=== PATIENT | female | born 1960 | race Caucasian/White ===

== ENCOUNTER 2016-08-21 11:32 | Emergency (ER) | payer MEDICARE, OTHER ==
[2016-08-21 10:45] LABS: URINE SOURCE CLEAN CATCH
[2016-08-21 10:53] LABS: BASOPHIL# 0.1 X10e3 (0-0.3); BASOPHIL% 0.8 % (0-2.5); EOSINOPHIL# 0.1 X10e3 (0-0.7); EOSINOPHIL% 1.8 % (0.0-7.0); HEMOGLOBIN 14.1 gm/dL (12.0-16.0); LYMPHOCYTE# 2.3 X10e3 (1.0-3.5); LYMPHOCYTE% 27.6 % (17.0-45.0); MEAN CORPUSCULAR HEMOGLOBIN 30.6 PG (28-34); MEAN CORPUSCULAR HGB CONC 34.4 g/dL (30-36); MEAN PLATELET VOLUME 11.3 FL (6.5-11.5); MONOCYTE# 0.8 X10e3 (0-1.0); MONOCYTE% 9.5 % (3.0-12.0); NEUTROPHIL# 4.9 X10e3 (1.5-7.1); NEUTROPHIL% 60.3 % (40-75); PLATELET COUNT 193 X10e3 (140-420); RED BLOOD COUNT 4.61 X10e (3.90-5.30); RED CELL DISTRIBUTION WIDTH 14.1 % (11.0-15.5); WHITE BLOOD COUNT 8.2 X10e3 (4.0-10.5)
[2016-08-21 10:54] LABS: URINE APPEARANCE CLOUDY; URINE BILIRUBIN NEG (NEG); URINE BLOOD NEG (NEG); URINE COLOR YELLOW; URINE GLUCOSE 250 MG/DL (NEG); URINE KETONE NEG (NEG); URINE LEUKOCYTE ESTERASE 3+ (NEG); URINE NITRATE NEG (NEG); URINE PH 6.5 (5-8); URINE PROTEIN NEG (NEG); URINE SPECIFIC GRAVITY 1.015 (1.003-1.035)
[2016-08-21 10:56] LABS: DIFF IND NO
[2016-08-21 10:57] LABS: CULTURE INDICATED? YES; URINE BACTERIA AUWI 2+ (NEGATIVE); URINE SQUAMOUS EPITHELIAL CELL FEW /[HPF]
[2016-08-21 11:07] LABS: UWBCS1 AUWI 25-50 (0-5)
[2016-08-21 11:08] LABS: URINE MUCUS PRESENT
[2016-08-21 11:24] LABS: ALBUMIN SERUM 4.4 g/dL (3.5-5.0); ALKALINE PHOSPHATASE 90 U/L (32-92); ALT (SGPT) 29 U/L (10-40); AST (SGOT) 26 U/L (10-42); BILIRUBIN, DIRECT 0.1 mg/dL (0.0-0.2); BILIRUBIN,INDIRECT 0.9 mg/dL (0.0-0.9); BLOOD UREA NITROGEN 27 mg/dL (9-23); CALCIUM SERUM 9.4 mg/dL (8.4-10.2); CARBON DIOXIDE 28 mmol/L (22-31); CHLORIDE 95 mmol/L (100-111); CREATININE SERUM 0.9 mg/dL (0.6-1.4); GLOM FILT RATE Estimated ABOVE60 mL/min (>60); GLUCOSE FASTING 254 mg/dL (70-110); POTASSIUM 3.6 mmol/L (3.5-5.1); PROTEIN TOTAL SERUM 8.5 g/dL (6.0-8.3); SODIUM 133 mmol/L (135-145)
== END 2016-08-21 13:02 | disposition home or self-care (01) ==
LOC: CED 11:32
PROVIDERS: Emergency Medicine
DX: R73.9 Hyperglycemia, unspecified (principal); N39.0 Urinary tract infection, site not specified; I10 Essential (primary) hypertension
CPT/HCPCS: 36415; 80048; 80076; 81003; 82947; 85025; 87086; 96365; 99284; J0696

== ENCOUNTER 2016-10-27 21:01 | Observation (INO) | payer MEDICARE, OTHER ==
--- NOTE | ~2016-10-27 | HP ---
Unit #: [id number] #: [id number] Patient: NABOR NGUYEN [id number] [address] [address] [id number] I MR#: [id number] NAME: NABOR NGUYEN ROOM: 87339 Age: 56 Sex: F Admission Date: 10/28/2016 : 1960 Attending Physician: Jennifer Blankenship M.D. Primary Care Physician: Carmen Clark M.D. HISTORY AND PHYSICAL CHIEF COMPLAINT Chest pain. HISTORY This pleasant 56-year-old female with hypertension, AODM, mental retardation, is admitted for chest pain. The patient was in her usual state of health until yesterday when she complained of chest pain and possibly rash to her arms. She also noted shortness of breath with the above. I believe the chest pain was worse with inspiration, possibly worse with p.o. She was brought to this emergency department last evening when she was treated with Solu-Medrol, Pepcid and aspirin, currently feels improved. Workup thus far is fairly unremarkable. The patient generally is active, has no history of heart disease or history of chest pain in the past. PAST MEDICAL HISTORY 1. Hypertension. 2. AODM. 3. Left eye surgery. ALLERGIES None. HOME MEDICATIONS Two blood pressure medicines and oral hypoglycemic of unknown name. FAMILY HISTORY Negative for CAD. SOCIAL HISTORY Patient lives with her brother, she is a lifelong nonsmoker and does not drink alcohol. REVIEW OF SYSTEMS Somewhat difficult to obtain due to cognitive function. PHYSICAL EXAMINATION GENERAL: Very pleasant, mildly obese, 56-year-old female who currently is in no acute distress. VITAL SIGNS: Temperature 97.9, pulse 102, respirations 18, initial blood pressure 172/78, which has improved to 135/75. O2 saturation was 100%. HEENT: Pupils are unequal with the left pupil being irregular secondary to previous surgery. Pharynx is benign. Unit #: [id number] #: [id number] Patient: NABOR NGUYEN NECK: Supple without adenopathy or thyromegaly. CHEST: Clear. No chest wall tenderness on exam. CARDIAC: Normal S1 and S2 without S3, S4, or murmur. ABDOMEN: Bowel sounds are present. No hepatosplenomegaly, tenderness or masses. EXTREMITIES: Without clubbing, cyanosis or edema. Pedal pulses are present. No ulcerations on the feet. NEUROLOGIC: Patient is awake, alert and oriented. Cranial nerves are intact. Equal strength throughout. DIAGNOSTIC STUDIES ADMISSION LABS: Hematocrit 35.4, normal white count and platelet count. Negative cardiac markers x2. D-dimer normal. SMA 12 - glucose 212, sodium 134, potassium 3.4, chloride 97, BNP is normal. IMAGING STUDIES: Chest x-ray read as questionably abnormal. Borderline cardiomegaly, maybe some subtle airspace disease at the right base. Possibly some mild vascular congestion at the lower lungs. However, BNP is normal as mentioned above. CARDIOLOGY STUDIES: EKG - normal sinus rhythm rate [address] wave abnormalities noted laterally. ASSESSMENT 1. Atypical chest pain. 2. AODM. 3. Hypertension. 4. Mental retardation. PLANS 1. Stress test in the morning if troponin remains negative. 2. Continue aspirin, which was started in the ER. 3. Obtain home medication list. Dictated by Jennifer Blankenship M.D. AML/ts TD: 10/28/2016 05:26 JOB #: [id number] HISTORY AND PHYSICAL Page 1 of 1 X Jennifer Blankenship MD X HISTORY AND PHYSICAL
--- NOTE | ~2016-10-27 | CR72 ---
[facility] A Service of [facility] RADIOLOGY TEXT RESULTS PATIENT: NABOR NGUYEN LOCATION: C3A 303-01 : 58 UNIT #: [id number] AGE: [address]: Danette Ashford MD SEX: F ORDER DR: [id number] [facility] [address] [place], [place] [address] [id number] E MR#: [id number] Acc #: [id number] NAME: NABOR NGUYEN : 1960 SEX: F STUDY DATE/TIME: 10/27/2016 22:13 UNIT: [facility] ROOM: STUDY DESCRIPTION: CR Chest Single View Portable Attending Physician: Kristofer Whitman D.O. Ordering Physician: Kristofer Whitman D.O. Primary Care Physician: Carmen Clark M.D. MEDICAL IMAGING REPORT This report is preliminary unless electronic signature is present EXAM Chest x-ray, portable. HISTORY Chest pain, short of air today. No injury. COMMENT Single frontal portable view of the chest timed 22:13, 10/27/2016, reviewed. COMPARISON No previous. FINDINGS Cardiac silhouette size is top normal. There is evidence for old granulomatous disease. There is probably some vascular congestion and mild interstitial edema more prominent to the lower lungs. There may be some patchy airspace disease at the right base. Please correlate for clinical concern for mild volume overload. Follow up film is suggested. There is no pleural effusion or pneumothorax. IMPRESSION Concern for some mild vascular congestion and interstitial edema more apparent to the lower lungs. The patient has not been seen here previously. Please correlate for any clinical concern for mild volume overload. Heart size is top normal and there is no pleural effusion or pneumothorax. There may be some subtle airspace disease at the right base. Follow up films therefore recommended. Dictated by... Lourdes Hendrickson M.D. [facility] A Service of [facility] RADIOLOGY TEXT RESULTS PATIENT: NABOR NGUYEN LOCATION: C3A 303-01 : [birth year] UNIT #: [id number] AGE: [address]: Danette Ashford MD SEX: F ORDER DR: THIS IS AN ELECTRONICALLY VERIFIED REPORT Lourdes Hendrickson M.D. at 10/29/2016 7:36 AM MIGUEL/isreal TD: 10/27/2016 22:51 JOB #: [id number] MEDICAL IMAGING REPORT Page 1 of 1 COPY
--- NOTE | ~2016-10-27 | DS ---
Unit #: [id number] #: [id number] Patient: NABOR NGUYEN [id number] [address] [address] [id number] I MR#: [id number] NAME: NABOR NGUYEN ROOM: 303 Age: 56 Sex: F Admission Date: 10/28/2016 : 1960 Discharge Date: 10/28/2016 Attending Physician: Danette Ashford M.D. Primary Care Physician: Carmen Clark M.D. DISCHARGE SUMMARY REASON FOR ADMISSION Chest pain. HISTORY OF PRESENT ILLNESS/HOSPITAL COURSE The patient is a 56-year-old female with prior history of MRDD, hypertension, diabetes type 2. Was admitted secondary to chest pain and/or discomfort. She was admitted. Cardiac enzymes were cycled, otherwise negative. Patient underwent stress nuclear cardiac evaluation. She could not ambulate on the treadmill safely; therefore, she received Lexiscan. Final studies did show an ejection fraction greater than 65%. No wall motion abnormalities were noted. She was cleared from a cardiac standpoint. At time of discharge her medications were altered in regard to her prior history of diabetes type 2. She was given a prescription for lisinopril 20 mg p.o. daily. She was instructed to stop her triamterene. She was also given a prescription for atenolol 25 mg p.o. daily, as well. She will continue her metformin, as previously prescribed. She will follow up with her primary care physician in 7-10 days. FINAL DISCHARGE DIAGNOSES 1. Chest pain, acute coronary syndrome ruled out. 2. Type 2 diabetes. 3. Hypertension. 4. Mental retardation and developmental disabilities. FINAL DISCHARGE MEDICATIONS 1. Atenolol 25 mg p.o. daily. 2. Lisinopril 20 mg p.o. daily. 3. Metformin 500 mg p.o. b.i.d. DISCHARGE CONDITION Stable. DISCHARGE DISPOSITION Home. Dictated by... Danette Ashford M.D. Unit #: [id number] #: [id number] Patient: NABOR NGUYEN ISN/db TD: 10/29/2016 11:07 JOB #: [id number] DISCHARGE SUMMARY Page 1 of 1 X Danette Ashford MD DISCHARGE SUMMARY
--- NOTE | ~2016-10-27 | EKG ---
PATIENT: NABOR NGUYEN UNIT #: [id number] Ventricular Rate: 97 BPM Atrial Rate: 97 BPM P-R Interval: 134 ms QRS Duration: 86 ms Q-T Interval: 350 ms QTC Calculation(Bezet): 444 ms P [place]: 38 degrees Calculated R [place]: 18 degrees Calculated T [place]: 96 degrees Diagnosis Line: Normal sinus rhythm Diagnosis Line: T wave abnormality, consider anterior ischemia Diagnosis Line: Abnormal ECG Diagnosis Line: No previous ECGs available Diagnosis Line: Confirmed by ARLYN SANCHEZ MD ([id number]) on 10/29/2016 Diagnosis Line: 10:33:01 AM INTERPRETING MD: DANIEL MENDES
--- NOTE | ~2016-10-27 | TH ---
Unit #: [id number] #: [id number] Patient: NABOR NGUYEN [id number] [address] [address] [id number] I MR#: [id number] NAME: NABOR NGUYEN : 1960 SEX: F STUDY DATE/TIME: 10/28/2016 UNIT: C3A PCU ROOM: 303 STUDY DESCRIPTION: Stress and Imaging Study Attending Physician: Danette Ashford M.D. Primary Care Physician: Carmen Clark M.D. CARDIOLOGY REPORT EXAM Stress nuclear and ECG INDICATION Inability to exercise, dyspnea, for the diagnosis of obstructive coronary disease contributing to the patient's dyspnea. Patient could not walk on a treadmill safely. Abnormal resting ECG. SUMMARY Patient received Lexiscan intravenously while at rest. The resting ECG was abnormal with T-wave inversion in leads II, III, aVF, V2 through V6. With stress there were no diagnostic ST shifts, no dysrhythmias, and no heart block. The heart rate increased from 104 to 131, and blood pressure decreased from 153/95 to 119/64. Technetium-99m Cardiolite, 12.0 and 30.6 mCi, was injected intravenously in association with the Lexiscan. Appropriate views were obtained. FINDINGS The study is adequate. LV size is small. Wall motion is normal. End-diastolic volume is 52 mL, ejection fraction greater than 65%, with no wall motion abnormalities. No significant patient motion is noted during acquisition of the rest or stress images. There is no increased lung uptake, LV or RV enlargement. Summed stress score is 5, summed difference score is 5. Changes involve only border detection at the very base of the septum. Perfusion images demonstrate normal perfusion throughout the myocardium both at rest and stress, with intestinal artifact present at both rest and stress. IMPRESSION 1. Normal study. 2. Abnormal rest ECG without ischemia. 3. Normal wall motion and ejection fraction. Dictated by... Bi Dykes M.D. BECK/chepe TD: 10/28/2016 19:28 Unit #: [id number] #: [id number] Patient: NAOBR NGUYEN JOB #: [id number] CARDIOLOGY REPORT Page 1 of 1 X Bi Dykes MD CARDIOLOGY REPORT
--- NOTE | ~2016-10-27 | EKG ---
PATIENT: NABOR NGUYEN UNIT #: [id number] Ventricular Rate: 95 BPM Atrial Rate: 95 BPM P-R Interval: 132 ms QRS Duration: 80 ms Q-T Interval: 358 ms QTC Calculation(Bezet): 449 ms P [place]: 22 degrees Calculated R [place]: 8 degrees Calculated T [place]: 51 degrees Diagnosis Line: Normal sinus rhythm Diagnosis Line: Minimal voltage criteria for LVH, may be normal Diagnosis Line: variant Diagnosis Line: T wave abnormality, consider anterior ischemia Diagnosis Line: Abnormal ECG Diagnosis Line: When compared with ECG of 27-OCT-2016 21:56, Diagnosis Line: (unconfirmed) Diagnosis Line: No significant change was found Diagnosis Line: Confirmed by ARLYN SANHCEZ MD ([id number]) on 10/29/2016 Diagnosis Line: 10:33:32 AM INTERPRETING MD: DANIEL MENDES
[2016-10-27 22:33] LABS: POC - CKMB <1.0 ng/mL (0.0-7.9); POC - TROPONIN <0.05 ng/mL (<=0.05)
[2016-10-27 22:54] LABS: BASOPHIL% 0.7 % (0-2.5); DIFF IND NO; EOSINOPHIL# 0.3 X10e3 (0-0.7); HEMATOCRIT 35.4 % (35.0-45.0); HEMOGLOBIN 12.5 gm/dL (12.0-16.0); LYMPHOCYTE# 1.9 X10e3 (1.0-3.5); LYMPHOCYTE% 28.5 % (17.0-45.0); MEAN CELL VOLUME 88.5 FL (83-96); MEAN CORPUSCULAR HEMOGLOBIN 31.2 PG (28-34); MEAN CORPUSCULAR HGB CONC 35.3 g/dL (30-36); MEAN PLATELET VOLUME 10.9 FL (6.5-11.5); MONOCYTE# 0.7 X10e3 (0-1.0); MONOCYTE% 10.2 % (3.0-12.0); NEUTROPHIL# 3.8 X10e3 (1.5-7.1); NEUTROPHIL% 56.6 % (40-75); PLATELET COUNT 197 X10e3 (140-420); RED CELL DISTRIBUTION WIDTH 14.8 % (11.0-15.5); WHITE BLOOD COUNT 6.8 X10e3 (4.0-10.5)
[2016-10-27 23:25] LABS: ALKALINE PHOSPHATASE 69 U/L (32-92); ALT (SGPT) 24 U/L (10-40); AST (SGOT) 19 U/L (10-42); BILIRUBIN,TOTAL 0.6 mg/dL (0.2-2.0); BLOOD UREA NITROGEN 20 mg/dL (9-23); BUN/CREATININE RATIO 18.18; CALCIUM SERUM 9.1 mg/dL (8.4-10.2); CARBON DIOXIDE 26 mmol/L (22-31); CHLORIDE 97 mmol/L (100-111); CREATININE SERUM 1.1 mg/dL (0.6-1.4); GLOM FILT RATE Estimated 55.7 mL/min (>60); GLUCOSE FASTING 212 mg/dL (70-110); LIPASE 29 U/L (22-51); POTASSIUM 3.4 mmol/L (3.5-5.1); PROTEIN TOTAL SERUM 7.5 g/dL (6.0-8.3); SODIUM 134 mmol/L (135-145)
[2016-10-27 23:26] LABS: BILIRUBIN, DIRECT <0.1 mg/dL (0.0-0.2); BILIRUBIN,INDIRECT 0.5 mg/dL (0.0-0.9)
[2016-10-28 00:23] LABS: POC - CKMB 1.3 ng/mL (0.0-7.9); POC - TROPONIN <0.05 ng/mL (<=0.05)
[2016-10-28 08:29] LABS: BASOPHIL% 0.2 % (0-2.5); HEMATOCRIT 37.4 % (35.0-45.0); HEMOGLOBIN 12.8 gm/dL (12.0-16.0); LYMPHOCYTE# 0.9 X10e3 (1.0-3.5); LYMPHOCYTE% 9.7 % (17.0-45.0); MEAN CELL VOLUME 89.9 FL (83-96); MEAN CORPUSCULAR HEMOGLOBIN 30.7 PG (28-34); MEAN CORPUSCULAR HGB CONC 34.1 g/dL (30-36); MEAN PLATELET VOLUME 11.1 FL (6.5-11.5); MONOCYTE# 0.1 X10e3 (0-1.0); MONOCYTE% 0.9 % (3.0-12.0); NEUTROPHIL% 89.2 % (40-75); PLATELET COUNT 202 X10e3 (140-420); RED BLOOD COUNT 4.16 X10e (3.90-5.30); RED CELL DISTRIBUTION WIDTH 14.9 % (11.0-15.5)
[2016-10-28 08:31] LABS: DIFF IND NO
[2016-10-28] MEDS ORDERED: METFORMIN HCL500 M2 PO (08:55)
[2016-10-28] MEDS ORDERED: TRIAMTERENE-HC1 EAC1 PO (08:55)
[2016-10-28 08:58] LABS: BUN/CREATININE RATIO 17.5; CREATININE SERUM 1.2 mg/dL (0.6-1.4); GLOM FILT RATE Estimated 50.1 mL/min (>60)
[2016-10-28] MEDS ORDERED: LISINOPRIL20 MG PO (22:48)
[2016-10-28] MEDS ORDERED: PROTONIX40 M1 PO (22:50)
[2016-10-28] MEDS ORDERED: ATENOLOL25 MG PO (22:51)
== END 2016-10-28 23:32 | disposition home or self-care (01) ==
LOC: CED 21:01 → CEDOF 10-28 02:45 → C3A PCU 10-28 02:45 → CEDOF 10-28 02:49 → CED 10-28 02:49 → CEDOF 10-28 07:23 → C3A PCU 10-28 09:46 → CEDOF 10-28 09:46 → C3A PCU 10-28 23:32
PROVIDERS: Emergency Medicine; Internal Medicine
DX: R07.89 Other chest pain (principal); J98.4 Other disorders of lung; R94.01 Abnormal electroencephalogram [EEG]; E11.9 Type 2 diabetes mellitus without complications; Z79.84 Long term (current) use of oral hypoglycemic drugs; I10 Essential (primary) hypertension; F78 Other intellectual disabilities; Z79.899 Other long term (current) drug therapy
CPT/HCPCS: 36415; 71010; 78452; 80048; 80076; 82550; 82553; 82947; 83690; 83880; 84484; 85025; 85379; 93005; 93017; 96374; 96375; 99285; A9500; G0378; J2785; J2930

== ENCOUNTER 2016-12-28 06:32 | Emergency (ER) | payer MEDICARE, OTHER ==
[~2016-12-28] VITALS: Ht 167.6 cm; Wt 63.5 kg
--- NOTE | ~2016-12-28 | CR63 ---
[facility] A Service of [facility] RADIOLOGY TEXT RESULTS PATIENT: NABOR NGUYEN LOCATION: CFTX : 58 UNIT #: [id number] AGE: [address]: Alicia Panda SEX: F ORDER DR: [id number] [facility] [address] [place], [place] [address] [id number] E MR#: [id number] Acc #: [id number] NAME: NABOR NGUYEN : 1960 SEX: F STUDY DATE/TIME: 12/28/2016 7:12 UNIT: [facility] ROOM: STUDY DESCRIPTION: CR Chest 2 View Attending Physician: Alicia Panda P.A.-C. Ordering Physician: Ed Bk Villarreal M.D. Primary Care Physician: Carmen Clark M.D. MEDICAL IMAGING REPORT This report is preliminary unless electronic signature is present EXAM Chest x-ray 12/28/2016 INDICATION Cough and shortness of air for 1 week. History of hypertension. FINDINGS 2 views of the chest compared to 10/27/2016. Mild cardiomegaly is stable. Granulomatous calcifications noted at the left base. There is chronic atelectasis or scarring in both bases. Lungs are otherwise clear. No pneumothorax. IMPRESSION Stable cardiomegaly. Mild chronic scarring or atelectasis in both lung bases. Dictated by... Conor Scanlon Jr., M.D. THIS IS AN ELECTRONICALLY VERIFIED REPORT Conor Scanlon Jr., M.D. at 12/28/2016 5:18 PM BARRY/lakesha TD: 12/28/2016 10:55 JOB #: [id number] MEDICAL IMAGING REPORT Page 1 of 1 COPY
[~2016-12-28 06:32] MED LIST: ATENOLOL25 MG PO; LISINOPRIL20 MG PO; METFORMIN HCL500 M2 PO; PROTONIX40 M1 PO; TRIAMTERENE-HC1 EAC1 PO
== END 2016-12-28 07:55 | disposition home or self-care (01) ==
LOC: CFTX 06:32 → CED 06:32 → CFTX 07:52
DX: J06.9 Acute upper respiratory infection, unspecified (principal); E11.9 Type 2 diabetes mellitus without complications; I10 Essential (primary) hypertension
CPT/HCPCS: 71020; 87651; 99283